=== PATIENT | female | born 1990 | race Caucasian/White ===

== ENCOUNTER 2018-08-30 01:21 | Inpatient (IN) | payer OTHER ==
[2018-09-08] MEDS ORDERED: Ondansetron PF 4 MG/2 ML Vial IVP PRN (22:20)
[2018-09-08] MEDS ORDERED: Misoprostol 200 MCG TAB PR PRN (22:20)
[2018-09-08] MEDS ORDERED: HYDROcodone/Acetaminophen 5/325 mg Tablet PO PRN (22:20)
[2018-09-08] MEDS ORDERED: NS w/ Oxytocin 10 units 500 ML IV SCH (22:20)
[2018-09-08] MEDS ORDERED: Butorphanol Tartrate 1 MG/ML VIAL SLOW IVP PRN (22:20)
[2018-09-08] MEDS ORDERED: Promethazine HCl 25 MG/ML VIAL IM PRN (22:20)
[2018-09-08] MEDS ORDERED: Lidocaine 1% (PF) 30 ML VIAL SC PRN (22:20)
[2018-09-08] MEDS ORDERED: Ibuprofen 800 MG TAB PO PRN (22:20)
[2018-09-08] MEDS ORDERED: Zolpidem Tartrate 5 MG TAB PO PRN (22:20)
[2018-09-08] MEDS ORDERED: NS / Oxytocin 40 units/1000ml 1,000 ML IV PRN (22:20)
[2018-09-08] MEDS ORDERED: Acetaminophen/Codeine 30-300mg Tablet PO PRN (22:20)
[2018-09-08] MEDS ORDERED: Methylergonovine 0.2 MG/ML VIAL IM PRN (22:20)
[2018-09-08] MEDS ORDERED: Acetaminophen 500 MG TAB PO PRN (22:20)
[2018-09-08 22:35] VITALS: BMI 34.4
[2018-09-08 23:02] LABS: Hemoglobin 12.5 g/dL (12.0-16.0); Mean Corpuscular HGB CONC 34.2 g/dL (32.0-36.0); Mean Corpuscular Hemoglobin 28.1 pg (27.0-31.0); Mean Corpuscular Volume 81.9 fL (78.0-98.0); Mean Platelet Volume 10.3 fL (7.4-10.4); Platelet Count 130 thou/uL (130-400); RBC Distribution Width 14.6 % (11.5-14.5); Red Blood Cell (RBC) Count 4.45 mill/uL (4.20-5.40); White Blood Cell (WBC) Count 9.5 thou/uL (4.8-10.8)
[2018-09-08] MEDS: Misoprostol 100 MCG TAB VAG SCH (23:12)
[2018-09-08] MEDS: Lactated Ringer's 1,000 ML IV SCH (23:12)
[2018-09-08 23:51] LABS: Syphilis Antibody Nonreactive (Nonreactive); Syphilis Antibody Index 0.03 S/CO (<1.00 Non-Reactive)
[2018-09-09 01:05] LABS: HBSAg Index 0.14 S/CO (0-0.99); Hep B Surf Ag Non-Reactive S/CO (NonReactive)
[2018-09-09] MEDS: Misoprostol 100 MCG TAB VAG SCH ×2 (02:15→05:10)
[2018-09-09] MEDS: Lactated Ringer's 1,000 ML IV SCH (05:05)
[2018-09-09] MEDS: Dextrose 5%-Lactated Ringers 1,000 ML IV SCH (16:55)
[2018-09-09] MEDS ORDERED: HYDROcodone/Acetaminophen 5/325 mg Tablet PO PRN (22:45)
[2018-09-09] MEDS ORDERED: Benzocaine/Menthol 20-0.5% 60 ML CAN TOP PRN (22:45)
[2018-09-09] MEDS ORDERED: Bisacodyl 10 MG SUPP PR PRN (22:45)
[2018-09-09] MEDS ORDERED: Ondansetron PF 4 MG/2 ML Vial IVP PRN (22:45)
[2018-09-09] MEDS ORDERED: Lanolin Ointment 7 GM TUBE TOP PRN (22:45)
[2018-09-09] MEDS ORDERED: Acetaminophen/Codeine 30-300mg Tablet PO PRN (22:45)
[2018-09-09] MEDS ORDERED: NS / Oxytocin 40 units/1000ml 1,000 ML IV SCH (22:45)
[2018-09-09] MEDS ORDERED: diphenhydrAMINE 25 MG CAP PO PRN (22:45)
[2018-09-09] MEDS ORDERED: Milk Of Magnesia 30 ML UDCUP PO PRN (22:45)
[2018-09-09] MEDS ORDERED: Preparation H Ointment 28 GM TUBE PR PRN (22:45)
[2018-09-09] MEDS: Ferrous Sulfate 325 MG TAB PO SCH (23:20)
[2018-09-09] MEDS: Prenatal Vitamin 1 TAB PO SCH (23:20)
[2018-09-09] MEDS: Ibuprofen 800 MG TAB PO SCH (23:20)
[2018-09-09] MEDS: Docusate Calcium (SURFAK) 240 MG CAP PO SCH (23:20)
[2018-09-10] MEDS: Ibuprofen 800 MG TAB PO SCH ×3 (05:40→21:19)
[2018-09-10] MEDS: Prenatal Vitamin 1 TAB PO SCH (08:27)
[2018-09-10] MEDS: Docusate Calcium (SURFAK) 240 MG CAP PO SCH ×2 (08:27→21:19)
[2018-09-10] MEDS: Ferrous Sulfate 325 MG TAB PO SCH ×2 (08:28→18:52)
[2018-09-10] MEDS: Dextrose 5%-Lactated Ringers 1,000 ML IV SCH ×2 (11:00→18:52)
--- NOTE | 2018-09-10 16:25 | ULT ---
ULTRASOUND ABDOMEN LIMITED: (RIGHT UPPER QUADRANT) 09/10/18 HISTORY: Right upper quadrant abdominal pain in 28-year-old female. FINDINGS: Gallbladder: Normal wall thickness. No pericholecystic fluid. Several tiny mobile gallstones a few m illimeters in size each in gallbladder body and fundus. No sonographic Vazquez's sign. Common duct: 5 mm. Liver: Normal echogenicity. Pancreas: Nonspecific sonographic appearance. Right kidney: No hydronephrosis. IMPRESSION: Positive for cholelithiasis. Negative for acute cholecystitis. JN R POS: TPC
[2018-09-11] MEDS: Ibuprofen 800 MG TAB PO SCH (06:04)
[2018-09-11] MEDS: Dextrose 5%-Lactated Ringers 1,000 ML IV SCH ×2 (07:01→09:50)
[2018-09-11] MEDS: Misoprostol 100 MCG TAB VAG SCH ×2 (07:03→07:04)
[2018-09-11] MEDS: Lactated Ringer's 1,000 ML IV SCH ×2 (07:04→07:05)
[2018-09-11 08:18] VITALS: BP 106/55; TEMP 98
[2018-09-11] MEDS: Ferrous Sulfate 325 MG TAB PO SCH (09:04)
[2018-09-11] MEDS: Docusate Calcium (SURFAK) 240 MG CAP PO SCH (09:49)
[2018-09-11] MEDS: Prenatal Vitamin 1 TAB PO SCH (09:49)
== END 2018-09-11 12:17 | disposition home or self-care (01) | DRG 807 ==
LOC: EDSTATUS 17:03 → L&D 09-08 22:02 → 3SE 09-09 23:09
PROVIDERS: ADMIT Family Medicine; ATTEND Family Medicine
PROC: 3E0P7VZ Introduction of Hormone into Female Reproductive, Via Natural or Artificial Opening (ICD-10-PCS; 2018-09-08)
PROC: 3E033VJ Introduction of Other Hormone into Peripheral Vein, Percutaneous Approach (ICD-10-PCS; 2018-09-08)
PROC: 10E0XZZ Delivery of Products of Conception, External Approach (ICD-10-PCS; principal; 2018-09-09)
PROC: 0HQ9XZZ Repair Perineum Skin, External Approach (ICD-10-PCS; 2018-09-09)
PROC: 10907ZC Drainage of Amniotic Fluid, Therapeutic from Products of Conception, Via Natural or Artificial Opening (ICD-10-PCS; 2018-09-09)
DX: O48.0 Post-term pregnancy (principal); Z37.0 Single live birth; O70.0 First degree perineal laceration during delivery; O69.0XX0 Labor and delivery complicated by prolapse of cord, not applicable or unspecified; O99.63 Diseases of the digestive system complicating the puerperium; K80.20 Calculus of gallbladder without cholecystitis without obstruction; Z3A.41 41 weeks gestation of pregnancy
CPT/HCPCS: 36415; 76705; 85027; 86780; 86850; 86900; 86901; 87340; J2001